=== PATIENT | female | born 2005 | race Caucasian/White ===

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

== ENCOUNTER 2025-01-06 08:35 | Emergency (ER) | payer MEDICAID ==
[2025-01-06] MEDS: Acetaminophen 325 MG/10.15 ML PO ONE (09:17)
[2025-01-06 09:30] LABS: BASOPHILS ABSOLUTE AUTO 0.02 K/uL (0.00-0.30); BASOPHILS PERCENT AUTO 0.1 % (0.0-1.0); EOSINOPHILS ABSOLUTE AUTO 0.01 K/uL (0.00-0.70); EOSINOPHILS PERCENT AUTO 0.1 % (0.0-5.0); IMMATURE GRAN ABSOLUTE AUTO 0.05 K/uL (0.00-0.05); IMMATURE GRAN PERCENT AUTO 0.4 % (0.0-0.4); LYMPHOCYTES ABSOLUTE AUTO 0.90 K/uL (2.00-8.80); LYMPHOCYTES PERCENT AUTO 6.6 % (50.0-65.0); MEAN PLATELET VOLUME 10.4 fL (9.4-12.3); MONOCYTES ABSOLUTE AUTO 1.07 K/uL (0.10-1.40); MONOCYTES PERCENT AUTO 7.9 % (2.0-10.0); NEUTROPHILS ABSOLUTE AUTO 11.50 K/uL (1.50-8.50); NEUTROPHILS PERCENT AUTO 84.9 % (35.0-45.0); NRBC ABSOLUTE 0.00 K/uL (0.00-0.03); NRBC PERCENT 0.0 /100WBC (0.0-0.2); PLATELET COUNT,PLT 214 K/uL (150-400); RED BLOOD CELL COUNT 3.97 M/uL (4.10-5.30); WHITE BLOOD CELL COUNT,WBC 13.55 K/uL (4.5-13.5)
[2025-01-06 09:56] LABS: LACTIC ACID 0.8 mmol/L (0.4-2.0)
[2025-01-06 10:00] LABS: BLOOD UREA NITROGEN,BUN 9.0 mg/dL (7.0-18.0); CARBON DIOXIDE,CO2 25.7 mmol/L (21.0-32.0); CHLORIDE,CL 103.0 mmol/L (98-107); CREATININE 0.8 mg/dL (0.6-1.0); EST CRCL DRUG DOSING (CG) 101.78 mL/min; GLUCOSE RANDOM 117.0 mg/dL (74-106); POTASSIUM,K 3.1 mmol/L (3.5-5.1); SODIUM,NA 141.0 mmol/L (136-145)
[2025-01-06 10:01] LABS: ESTIMATED GFR 109.0 mL/min (>60)
[2025-01-06 10:08] LABS: CORONAVIRUS COVID-19 NAA NEGATIVE (NEGATIVE); INFLUENZA A NAA NEGATIVE (NEGATIVE); INFLUENZA B NAA NEGATIVE (NEGATIVE)
[2025-01-06] MEDS: Potassium Chloride 10% 20 MEQ/15 ML Soln 15 ML UD Cup PO ONE (10:29)
== END 2025-01-06 10:33 | disposition home or self-care (01) ==
LOC: MW.ED 08:35
DX: J02.0 Streptococcal pharyngitis (principal); E87.6 Hypokalemia
CPT/HCPCS: 36415; 80048; 83605; 84703; 85025; 87636; 87651; 99283; A9270